=== PATIENT | male | born 1965 | race Caucasian/White ===

== ENCOUNTER 2020-05-13 16:01 | Emergency (ER) | payer OTHER, SELFPAY ==
[2020-05-13 16:06] VITALS: BP 195/93; PULSE 67; RESP 20; TEMP 36.3; O2SAT 98; BMI 50.8
--- NOTE | 2020-05-13 18:12 | ED.GENADULT ---
HPI - General Adult General Chief complaint: Upper Respiratory Symptoms Stated complaint: Hearing Loss In Right Ear Time Seen by Provider: 05/13/20 18:04 Source: patient Mode of arrival: Ambulatory Limitations: no limitations History of Present Illness HPI narrative: 54-year-old gentleman with a history of hypertension, sleep apnea with prior jaw advancement surgery, chronic bronchitis and seasonal allergies presents with ear discomfort and full sensation on the right side. He describes no specific hearing loss but it does feel a bit more muffled, pressured and mild tinnitus on the right side. No tenderness, no fevers, no drainage no recent injury or trauma to the ear. He has no throat pain, neck pain and no concerns with edema around the ear or the neck. He has tried Sudafed and Tylenol and found that did not relieve any of the symptoms. Related Data Home Medications Medication Instructions Recorded Confirmed lisinopril 10 mg tablet 20 mg PO QDAY #0 tab 03/06/20 03/06/20 montelukast 10 mg tablet 10 mg PO DAILY 03/06/20 03/06/20 Previous Rx's Medication Instructions Recorded nitroglycerin [Nitrostat] 0.4 mg SUBLINGUAL PRN PRN #100 tab 03/26/17 Allergies Allergy/AdvReac Type Severity Reaction Status Date / Time pollen extracts Allergy cough, Verified 03/06/20 11:21 congestion Review of Systems Review of Systems ROS Unobtainable: All systems reviewed & are unremarkable except as noted in HPI and below Patient History Medical History (Updated 05/14/20 @ 00:22 by Wendi Rios MD) Chronic bronchitis Hypertension Sleep apnea Surgical History (Updated 05/14/20 @ 00:22 by Wendi Rios MD) History of mandibular surgery Family History Father Sleep apnea Obesity Hypertension Heart disease Mother Sleep apnea Obesity Hypertension Family/Other Sleep apnea Insomnia Obesity Hypertension Heart disease Depression Social History Smoking Status: Never smoker Smoking Status: Never smoker alcohol intake frequency: 0-2 drinks per day Substance Use Type: does not use Exam Narrative Exam Narrative: General: Alert appropriate in no acute distress HEENT: Ear canals are normal bilaterally with no evidence of swelling infection or trauma. Both tympanic membranes are within normal limits. Right TMJ is tender with palpation through range of motion and completely reproduces his pain. Respiratory: Able to speak in full sentences, no obvious respiratory distress Skin: No obvious rashes, warm and dry Neurologic: Grossly intact no obvious asymmetries or abnormalities Psych, appropriate insight and affect, cooperative Initial Vital Signs Initial Vital Signs: Vital Signs Temperature 97.4 F L 05/13/20 16:06 Pulse Rate 67 05/13/20 16:06 Respiratory Rate 20 05/13/20 16:06 Blood Pressure 195/93 H 05/13/20 16:06 Pulse Oximetry 98 05/13/20 16:06 Course Vital Signs Vital signs: Vital Signs - 8 hr 05/13/20 16:06 Temperature 97.4 F L Pulse Rate 67 Respiratory Rate 20 Blood Pressure 195/93 H Pulse Oximetry 98 Medical Decision Making MDM Narrative Medical decision making narrative: 54-year-old gentleman presents with right ear pain and that is completely reproduced with palpation to the right TMJ through its full range of motion. Suspect that the your fullness is related to the pain in the right TMJ without evidence of your or joint infection or any specific trauma. No cervical adenopathy and no pharyngeal erythema or peritonsillar abscess. Will have him use ibuprofen and Tylenol over the next few days to see if symptoms improve spontaneously. He is safe for home discharge Discharge Plan Departure Patient Disposition: Home Clinical Impression: Temporomandibular joint pain Qualifiers: Laterality: right Qualified Code(s): M26.621 - Arthralgia of right temporomandibular joint Instructions: DI for Temporomandibular Disorder Activity Restrictions/Additional Instructions: Thank you for coming in today. Your exam is very reassuring. There is no infection, inflammation or abnormality in that your canal or along the tympanic membrane on the right side. With tenderness to the right TMJ as it moves through its range of motion, I suspect that this is the cause of the fullness that your noticing in the right ear. This likely will improve over the next few days. Frequently when a joint is inflamed it is worse with the 1st 1-2 days and then improved afterward. You can use 2 every 6 hours to aspirin and 1 Tylenol together help with the discomfort if needed. You may also find that ice to that TMJ area may help with the fullness sensation as well. For the next week or so I would advise that you not eat foods that require a lot of chewing and put extra stress on the jaw joint and do make sure that you are continuing to use your dental appliances while asleep to help avoid grinding as much as possible. I would encourage you to follow-up with your primary care physician in the near future. I hope you feel better Prescriptions: No Action nitroglycerin [Nitrostat] 0.4 MG tablet, sublingual 0.4 mg Sublingual PRN PRNQty: 100 RF: 0 lisinopril 10 mg tablet 20 mg PO QDAY Qty: 0 RF: 0 montelukast 10 mg tablet 10 mg PO DAILY RF: 0 Referrals: Kash Bowles MD [Primary Care Provider] -
== END 2020-05-13 18:52 | disposition home or self-care (01) ==
PROVIDERS: Emergency Provider Emergency Medicine; Family Provider Family Medicine; PCP Family Medicine
DX: M26.621 Arthralgia of right temporomandibular joint (principal); I10 Essential (primary) hypertension; G47.30 Sleep apnea, unspecified
CPT/HCPCS: 99281

== ENCOUNTER → 2020-08-16 08:41 | Outpatient (CLI) | payer OTHER, SELFPAY ==
[2020-08-16 09:39] LABS: COVID19 -Nasal RAPID Negative (Negative)
== END ==
PROVIDERS: Family Provider Family Medicine; PCP Family Medicine; Visit Provider Family Medicine Sleep Medicine
DX: Z20.822 Contact with and (suspected) exposure to COVID-19 (principal)
CPT/HCPCS: 87635; C9803

== ENCOUNTER → 2020-09-05 07:51 | Outpatient (CLI) | payer OTHER, SELFPAY ==
--- NOTE | 2020-09-05 | DI.ECHO.S_ITS ---
[facility] +---------+ [facility] +---------+ : : [address] : : : : [id number] : : : : Phone: [phone]+ Echocardiogram Report + + :Name: HOWARD TIJERINA Study Date: 09/05/2020 Height: 72 in : :[facility] ReadingLocation: Weight: 380 lb : : Gender: Male BSA: 2.8 m2 : :: 1965 Age: 55 yrs BP: 142/78 mmHg: :Reason For Study: Obstructive Hypertrophic cardiomyopathy : :Ordering Physician: MINH, : :WILI Performed By: Wendy Valerio : :Referring: WILI MOYA : + + Interpretation Summary PATIENT DEVELOPED PAIN IN LOWER BACK, NECK AND CHEST AFTER THE USE OF DEFINITY STATING 7/10 PAIN. AFTER 45 MIN OF OBSERVATION, PAIN IMPROVED. Patient states history of Etoh septal ablation. The left ventricle is mildly dilated. The left ventricular ejection fraction is grossly normal. There are no obvious focal wall motion abnormalities noted but poor endocardial definition reduces the sensitivity for the detection of such. Septal motion is consistent with bundle branch block. There is an echogenic mass noted along the interventricular septum or attached to papillary muscle or false tendon. The size is 3.0 x 2.2 cm and was present on prior echo study on 07/04/2016. There is no echo evidence for significant left ventricular outflow tract obstruction. The right ventricle is normal in size and function. The left atrium is severely dilated. Right atrial size is normal. The ascending aorta is mild-moderately enlarged. Procedure: A two-dimensional transthoracic echocardiogram with color flow and Doppler was performed. The study quality was technically difficult. Comparison is made with the echocardiogram of 03/05/2017. A contrast injection of Definity was performed to improve assessment of LV function. PATIENT DEVELOPED PAIN IN LOWER BACK, NECK AND CHEST AFTER THE USE OF DEFINITY. The heart rate ranged between 53-60 bpm during the study. Left Ventricle: The left ventricle is mildly dilated. Left ventricular wall thickness is mildly increased. There is no echo evidence for significant left ventricular outflow tract obstruction. There is an echogenic mass noted along the interventricular septum or attached to papillary muscle or false tendon. The size is 3.0 x 2.2 cm and was present on prior echo study on 07/04/2016. The left ventricular ejection fraction is grossly normal. There are no obvious focal wall motion abnormalities noted but poor endocardial definition reduces the sensitivity for the detection of such. Right Ventricle: The right ventricle is normal in size and function. Atria: The left atrium is severely dilated. Right atrial size is normal. There is no Doppler evidence for an interatrial shunt. Mitral Valve: The mitral valve leaflets appear mildly thickened, but open well. Aortic Valve: The peak aortic velocity is 2.1 m/sec. The aortic valve mean gradient is 9 mmHg. No aortic regurgitation is present. Tricuspid Valve: The tricuspid valve is not well visualized, but is grossly normal. No tricuspid regurgitation. Pulmonary artery pressures cannot be estimated because of the lack of a measurable TR jet velocity. Great Vessels: The ascending aorta is mild-moderately enlarged. The inferior vena cava was not visualized. Pericardium/ Pleura There is no pericardial effusion. There is no pleural effusion. MMode/2D Measurements & Calculations LVIDd: 6.1 cm LVOT diam: 3.2 cm LVIDs: 3.8 cm asc Aorta Diam: 4.1 cm FS: 37.9 % Ao Arch Diam (Prox Trans): 4.4 cm EPSS: 1.1 cm IVSd: 1.2 cm LVPWd: 1.1 cm LV sheets. diameter/BSA (cm/m^2): 2.2 LV sys. diameter/BSA (cm/m^2): 1.4 LA A2 area: 43.8 cm2 RA long axis: 5.6 cm LA A4 area: 37.7 cm2 RA area: 18.7 cm2 LA length (vol): 7.0 cm RA vol: 52.9 ml LA vol: 200.8 ml RA : 18.9 ml/m2 LA vol index: 71.8 ml/m2 RVD1 (basal): 2.9 cm TAPSE: 2.8 cm Doppler Measurements & Calculations Ao V2 max: 207.7 cm/sec LVOT Max Juvenal: 78.1 cm/sec Ao V2 mean: 136.7 cm/sec LV V1 max P.4 mmHg Ao max P.3 mmHg LV V1 VTI: 16.8 cm Ao mean P.8 mmHg TERRI(I,D): 3.3 cm2 Ao V2 VTI: 39.7 cm TERRI(V,D): 2.9 cm2 sev ratio: 0.42 TERRI indexed to BSA (cm^2/m^2): 1.2 MV E max juvenal: 90.9 cm/sec PA V2 max: 107.8 cm/sec MV A max juvenal: 83.6 cm/sec PA V2 mean: 80.7 cm/sec MV E/A: 1.1 PA mean P.8 mmHg Med Peak E' Juvenal: 5.9 cm/sec PA pr(Accel): 31.0 mmHg E/E' med: 15.4 Lat Peak E' Juvenal: 8.6 cm/sec E/E' lat: 10.6 E/e' average: 13.0 MV dec time: 0.36 sec SV(LVOT): 131.5 ml Reading Physician:10:14 AM
== END ==
PROVIDERS: Family Provider Family Medicine; PCP Family Medicine; Referring Provider Internal Medicine Cardiovascular Disease; Visit Provider Internal Medicine Cardiovascular Disease
DX: I42.1 Obstructive hypertrophic cardiomyopathy (principal); R07.9 Chest pain, unspecified; I77.89 Other specified disorders of arteries and arterioles
CPT/HCPCS: 93306

== ENCOUNTER → 2021-01-14 13:14 | Outpatient (CLI) | payer OTHER, SELFPAY ==
[2021-01-14 16:46] LABS: COVID19 -Nasal RAPID Negative (Negative)
== END ==
PROVIDERS: Family Provider Family Medicine; PCP Family Medicine; Referring Provider Nurse Practitioner Family; Visit Provider Nurse Practitioner Family
DX: Z20.822 Contact with and (suspected) exposure to COVID-19 (principal); Z01.812 Encounter for preprocedural laboratory examination
CPT/HCPCS: 87635

== ENCOUNTER → 2021-04-17 11:31 | Outpatient (CLI) | payer OTHER, SELFPAY ==
[2021-04-17 12:42] LABS: BUN Creatinine Ratio 19.8 (6-22); Blood Urea Nitrogen 17 mg/dL (9-20); Calcium 9.9 mg/dL (8.4-10.2); Carbon Dioxide 28 mmol/L (22-32); Chloride 106 mmol/L (98-107); Estimated Glomerular Filt Rate > 60.0 mL/min (>60); Glucose 120 mg/dL (70-100); HEMOLYSIS < 15 (0-50); Magnesium 2.3 mg/dL (1.6-2.3); Potassium 4.5 mmol/L (3.4-5.1); Sodium 140 mmol/L (137-145)
[2021-04-17 12:51] LABS: NT-proBNP (BNP-Adult 18+) 267 pg/mL (<125)
== END ==
PROVIDERS: Family Provider Family Medicine; PCP Family Medicine; Referring Provider Nurse Practitioner Family; Visit Provider Nurse Practitioner Family
DX: Z79.899 Other long term (current) drug therapy (principal); I42.2 Other hypertrophic cardiomyopathy
CPT/HCPCS: 36415; 80048; 83735; 83880

== ENCOUNTER → 2021-05-08 11:13 | Outpatient (CLI) | payer OTHER, SELFPAY ==
[2021-05-08 13:52] LABS: Blood Urea Nitrogen 18 mg/dL (9-20); Calcium 9.5 mg/dL (8.4-10.2); Carbon Dioxide 27 mmol/L (22-32); Chloride 104 mmol/L (98-107); Estimated Glomerular Filt Rate > 60.0 mL/min (>60); Glucose 113 mg/dL (70-100); HEMOLYSIS < 15 (0-50); Potassium 4.4 mmol/L (3.4-5.1); Sodium 138 mmol/L (137-145)
[2021-05-08 13:58] LABS: NT-proBNP (BNP-Adult 18+) 178 pg/mL (<125)
== END ==
PROVIDERS: Family Provider Family Medicine; PCP Family Medicine; Referring Provider Nurse Practitioner Family; Visit Provider Nurse Practitioner Family
DX: Z79.899 Other long term (current) drug therapy (principal); I51.89 Other ill-defined heart diseases
CPT/HCPCS: 36415; 80048; 83880

== ENCOUNTER 2021-06-02 04:17 | Emergency (ER) | payer OTHER, SELFPAY ==
[2021-06-02] VITALS (19 sets, daily range): BP systolic 135–180; BP diastolic 76–92; PULSE 54–56; RESP 10–20; TEMP 36.8; O2SAT 94–97; BMI 53.5
--- NOTE | 2021-06-02 04:32 | DI.RAD.S_ITS ---
PROCEDURE: XR CHEST 1V INDICATIONS: chest pain TECHNIQUE: One view of the chest was acquired. COMPARISON: None. FINDINGS: Surgical changes and devices: Dual-chamber left-sided pacemaker and defibrillator present. Lungs and pleura: Lungs are clear. No pleural effusions or pneumothorax. Low lung volumes accentuate pulmonary interstitium and heart size. Mediastinum: Mediastinal contours appear normal. Heart size is normal. Bones and chest wall: No suspicious bony lesions. Overlying soft tissues appear unremarkable. IMPRESSION: No acute cardiopulmonary findings Approved by: Bishop Loving M.D. on 06/02/2021 at 7:04
--- NOTE | 2021-06-02 04:35 | ED_ITS ---
HPI - General Adult <Michael Pardo DO - Last Filed: 06/02/21 18:06> General Chief complaint: Chest Pain Stated complaint: chest pain x30 min Time Seen by Provider: 06/02/21 04:22 Source: patient and family Mode of arrival: Family Vehicle Limitations: no limitations History of Present Illness HPI narrative: Patient is a 55-year-old male. Has a history of hypertrophic cardiomyopathy. Does see a library science instructor at the [facility]. Approximately 1 year ago had a pacemaker/defibrillator placed. He states that he has cardiomyopathy because the small vessels in his heart cannot provide it with blood supply. Has very regular chest discomfort. Has long-acting nitrates at home. Has taken all of his medication as directed. He states that approximately 30 minutes prior to arrival the emergency department he started have left-sided chest pain. He has had chest pain like this in the past but this is different than his normal chest discomfort. He states that normally nitroglycerin helps with the discomfort. He took 3 nitroglycerin prior to arrival without any improvement. He also had minimal improvement of his blood pressure. Because the nitroglycerin did not improve his symptoms he came to the emergency department for evaluation. Related Data Home Medications Medication Instructions Recorded Confirmed lisinopril 40 mg tablet 40 mg PO DAILY 07/24/20 06/02/21 albuterol sulfate 90 mcg/actuation 2 puff INHALATION Q4-6H PRN 12/19/20 12/19/20 aerosol inhaler metoprolol tartrate 25 mg tablet 50 mg PO BID tab 12/19/20 06/02/21 Adult Low Dose Aspirin 1 tab DAILY 06/02/21 06/02/21 amlodipine 5 mg tablet mg DAILY 06/02/21 furosemide 40 mg tablet 40 mg DAILY 06/02/21 06/02/21 isosorbide mononitrate 30 mg 30 mg PO DAILY 06/02/21 06/02/21 tablet,extended release 24 hr nitroglycerin 0.4 mg sublingual 0.4 mg SUBLINGUAL PRN PRN 06/02/21 06/02/21 tablet (Nitrostat) potassium chloride 10 mEq 10 meq PO DAILY 06/02/21 06/02/21 tablet,extended release Previous Rx's Medication Instructions Recorded isosorbide mononitrate 60 mg 60 mg PO QAM #30 tab 06/02/21 tablet,extended release 24 hr Allergies Allergy/AdvReac Type Severity Reaction Status Date / Time Iodinated Contrast Media Allergy Verified 06/02/21 04:43 pollen extracts Allergy cough, Verified 12/19/20 14:10 congestion Review of Systems <Michael Pardo DO - Last Filed: 06/02/21 18:06> Constitutional Constitutional: Reports system reviewed and no additional complaints, except as documented Cardiovascular Cardiovascular: Reports as per HPI and Reports system reviewed and no additional complaints, except as documented Respiratory Respiratory: Reports as per HPI and Reports system reviewed and no additional complaints, except as documented Gastrointestinal Gastrointestinal: Reports system reviewed and no additional complaints, except as documented Integumentary/Breasts Skin/Breast: Reports system reviewed and no additional complaints, except as documented Hematologic/Lymphatic On Anticoagulants: No Patient History <Michael Pardo DO - Last Filed: 06/02/21 18:06> Medical History Allergic rhinitis Asthma Benign essential HTN Chest pain, atypical Cholelithiasis Chronic bronchitis HOCM (hypertrophic obstructive cardiomyopathy) Morbid obesity with body mass index (BMI) of 50.0 to 59.9 in adult (Unknown) Obstructive sleep apnea, adult (~1999) Surgical History (Updated 08/10/20 @ 17:09 by JASON Sullivan) History of cholecystectomy (~2016) History of mandibular surgery (~2002) Family History (Updated 07/25/20 @ 00:13 by JASON Sullivan) Father Sleep apnea Obesity Hypertension Heart disease HOCM (hypertrophic obstructive cardiomyopathy) Mother Sleep apnea Obesity Hypertension Family/Other Sleep apnea Insomnia Obesity Hypertension Heart disease Depression Social History marital status: (to Valentina Santana) details: lives in [place] number of children: 3 household members: spouse lives independently: Yes caregiver/support person: No housing: house education level: master's degree 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[employer]) Smoking Status: Never smoker during the past year weight has: increased > 10 lbs Type(s) of exercise: other (stationary bicycle) frequency: 3-4 times per week duration: 15-30 minutes/day Smoking Status: Never smoker alcohol intake frequency: 0-2 drinks per day Substance Use Type: does not use Exam <DO Suraj Isaacs Last Filed: 06/02/21 18:06> Initial Vital Signs Initial Vital Signs: Vital Signs Temperature 98.2 F 06/02/21 04:28 Pulse Rate 54 L 06/02/21 04:28 Respiratory Rate 18 06/02/21 04:28 Blood Pressure 146/79 H 06/02/21 04:28 Pulse Oximetry 97 06/02/21 04:28 Const General: cooperative and No acute distress HENMT Head: normal to inspection and normocephalic Resp Effort & Inspection: normal respiratory effort Auscultation: clear to auscultation bilaterally Cardio Rate: regular rate Rhythm: regular rhythm GI Inspection: normal to inspection Palpation: soft and No tender Skin General: no rashes or lesions noted Neuro General: patient alert, patient awake, patient oriented x3 and moves all extremities Extrem General: edema (This is not new) Psych Appearance: grossly normal <Josselyn Escobar DO - Last Filed: 06/02/21 12:17> Initial Vital Signs Initial Vital Signs: Vital Signs Temperature 98.2 F 06/02/21 04:28 Pulse Rate 54 L 06/02/21 04:28 Respiratory Rate 18 06/02/21 04:28 Blood Pressure 146/79 H 06/02/21 04:28 Pulse Oximetry 97 06/02/21 04:28 Course <DO Suraj Isaacs Last Filed: 06/02/21 18:06> Orders Ordered: Discontinued Medications Amlodipine Besylate (Amlodipine 5 Mg Tablet) 5 mg PO NOW ONE Stop: 06/02/21 06:34 Last Admin: 06/02/21 07:19 Dose: 5 mg Documented by: SIMA Aspirin (Aspirin Ec 81 Mg Tablet) 81 mg PO NOW ONE Stop: 06/02/21 06:34 Last Admin: 06/02/21 07:22 Dose: 81 mg Documented by: SIMA Furosemide (Furosemide 40 Mg Tablet) 40 mg PO NOW ONE Stop: 06/02/21 06:34 Last Admin: 06/02/21 07:22 Dose: 40 mg Documented by: SIMA Isosorbide Mononitrate (Isosorbide Mononitrate Er 30 Mg Tablet) 30 mg PO NOW ONE Stop: 06/02/21 05:53 Last Admin: 06/02/21 06:03 Dose: 30 mg Documented by: SARAH Metoprolol Succinate (Metoprolol Er 50 Mg Tablet) 50 mg PO NOW ONE Stop: 06/02/21 06:34 Last Admin: 06/02/21 07:20 Dose: 50 mg Documented by: SIMA Morphine Sulfate (Morphine 4 Mg/Ml Inj) 4 mg IV NOW ONE Stop: 06/02/21 05:53 Last Admin: 06/02/21 05:57 Dose: 4 mg Documented by: SARAH Nitroglycerin (Nitroglycerin Oint 1 Inch/Gm Oint...G.) 0.5 inch TOP NOW ONE Stop: 06/02/21 04:43 Last Admin: 06/02/21 05:11 Dose: 0.5 inch Documented by: SARAH Potassium Chloride (Potassium Chloride 10 Meq Tab) 10 meq PO NOW ONE Stop: 06/02/21 06:34 Last Admin: 06/02/21 07:20 Dose: 10 meq Documented by: SIMA Vital Signs Vital signs: Vital Signs - 8 hr 06/02/21 04:28 06/02/21 05:18 06/02/21 05:30 Temperature 98.2 F Pulse Rate 54 L 54 L 54 L Respiratory Rate 18 10 L 14 Blood Pressure 146/79 H Pulse Oximetry 97 95 94 06/02/21 05:36 06/02/21 06:00 06/02/21 06:02 Temperature Pulse Rate 54 L 56 L 54 L Respiratory Rate 12 18 14 Blood Pressure 157/89 H 160/89 H Pulse Oximetry 96 97 97 06/02/21 06:30 06/02/21 07:00 06/02/21 07:20 Temperature Pulse Rate 54 L 54 L 54 L Respiratory Rate Blood Pressure 135/76 Pulse Oximetry 97 94 06/02/21 07:21 06/02/21 07:30 06/02/21 07:58 Temperature Pulse Rate 54 L 54 L 54 L Respiratory Rate 20 Blood Pressure 135/76 180/92 H 163/89 H Pulse Oximetry 95 97 06/02/21 07:59 06/02/21 08:00 06/02/21 08:30 Temperature Pulse Rate 54 L 55 L 54 L Respiratory Rate Blood Pressure 163/89 H Pulse Oximetry 96 96 96 06/02/21 09:00 06/02/21 09:30 06/02/21 09:31 Temperature Pulse Rate 54 L 54 L 54 L Respiratory Rate Blood Pressure 138/79 Pulse Oximetry 94 95 95 06/02/21 10:00 Temperature Pulse Rate 54 L Respiratory Rate 20 Blood Pressure 144/78 H Pulse Oximetry 94 <Josselyn Escobar DO - Last Filed: 06/02/21 12:17> Orders Ordered: Discontinued Medications Amlodipine Besylate (Amlodipine 5 Mg Tablet) 5 mg PO NOW ONE Stop: 06/02/21 06:34 Last Admin: 06/02/21 07:19 Dose: 5 mg Documented by: SIMA Aspirin (Aspirin Ec 81 Mg Tablet) 81 mg PO NOW ONE Stop: 06/02/21 06:34 Last Admin: 06/02/21 07:22 Dose: 81 mg Documented by: SIMA Furosemide (Furosemide 40 Mg Tablet) 40 mg PO NOW ONE Stop: 06/02/21 06:34 Last Admin: 06/02/21 07:22 Dose: 40 mg Documented by: SIMA Isosorbide Mononitrate (Isosorbide Mononitrate Er 30 Mg Tablet) 30 mg PO NOW ONE Stop: 06/02/21 05:53 Last Admin: 06/02/21 06:03 Dose: 30 mg Documented by: SARAH Metoprolol Succinate (Metoprolol Er 50 Mg Tablet) 50 mg PO NOW ONE Stop: 06/02/21 06:34 Last Admin: 06/02/21 07:20 Dose: 50 mg Documented by: SIMA Morphine Sulfate (Morphine 4 Mg/Ml Inj) 4 mg IV NOW ONE Stop: 06/02/21 05:53 Last Admin: 06/02/21 05:57 Dose: 4 mg Documented by: SARAH Nitroglycerin (Nitroglycerin Oint 1 Inch/Gm Oint...G.) 0.5 inch TOP NOW ONE Stop: 06/02/21 04:43 Last Admin: 06/02/21 05:11 Dose: 0.5 inch Documented by: SARAH Potassium Chloride (Potassium Chloride 10 Meq Tab) 10 meq PO NOW ONE Stop: 06/02/21 06:34 Last Admin: 06/02/21 07:20 Dose: 10 meq Documented by: SIMA Vital Signs Vital signs: Vital Signs - 8 hr 06/02/21 04:28 06/02/21 05:18 06/02/21 05:30 Temperature 98.2 F Pulse Rate 54 L 54 L 54 L Respiratory Rate 18 10 L 14 Blood Pressure 146/79 H Pulse Oximetry 97 95 94 06/02/21 05:36 06/02/21 06:00 06/02/21 06:02 Temperature Pulse Rate 54 L 56 L 54 L Respiratory Rate 12 18 14 Blood Pressure 157/89 H 160/89 H Pulse Oximetry 96 97 97 06/02/21 06:30 06/02/21 07:00 06/02/21 07:20 Temperature Pulse Rate 54 L 54 L 54 L Respiratory Rate Blood Pressure 135/76 Pulse Oximetry 97 94 06/02/21 07:21 06/02/21 07:30 06/02/21 07:58 Temperature Pulse Rate 54 L 54 L 54 L Respiratory Rate 20 Blood Pressure 135/76 180/92 H 163/89 H Pulse Oximetry 95 97 06/02/21 07:59 06/02/21 08:00 06/02/21 08:30 Temperature Pulse Rate 54 L 55 L 54 L Respiratory Rate Blood Pressure 163/89 H Pulse Oximetry 96 96 96 06/02/21 09:00 06/02/21 09:30 06/02/21 09:31 Temperature Pulse Rate 54 L 54 L 54 L Respiratory Rate Blood Pressure 138/79 Pulse Oximetry 94 95 95 06/02/21 10:00 Temperature Pulse Rate 54 L Respiratory Rate 20 Blood Pressure 144/78 H Pulse Oximetry 94 Medical Decision Making <Michael Pardo DO - Last Filed: 06/02/21 18:06> Lab Data Lab results reviewed: Yes I reviewed the patient's lab results. Result diagrams: 06/02/21 05:00 06/02/21 05:00 Labs: Lab Results 06/02/21 06/02/21 06/02/21 Range/Units 05:00 05:00 07:50 WBC 6.0 (4.5-11.0) X10^3/uL RBC 5.09 (4.5-5.9) X10^6/uL Hgb 15.6 (13.5-17.5) g/dL Hct 45.7 (41-53) % MCV 89.8 (80-100) fL MCH 30.7 (26-34) PG MCHC 34.2 (30-36) % RDW 13.2 (11.6-14.8) % Plt Count 245 (150-400) X10^3/uL Neut % (Auto) 57.2 (50-75) % Lymph % (Auto) 28.2 (25-40) % [place] % (Auto) 10.9 (3-14) % Eos % (Auto) 2.6 (2-4) % Baso % (Auto) 1.1 (0-2) % Neut # (Auto) 3400 (3837-9553) /uL Lymph # (Auto) 1700 (8562-6551) /uL [place] # (Auto) 700 (0-900) /uL Eos # (Auto) 200 (0-450) /uL Baso # (Auto) 100 (0-100) /uL Sodium 138 (137-145) mmol/L Potassium 3.7 (3.4-5.1) mmol/L Chloride 105 (98-107) mmol/L Carbon Dioxide 28 (22-32) mmol/L BUN 14 (9-20) mg/dL Creatinine 0.86 (0.66-1.25) mg/dL Estimated GFR > 60.0 (>60) mL/min BUN/Creatinine Ratio 16.3 (6-22) Glucose 128 H (70-100) mg/dL Calcium 9.5 (8.4-10.2) mg/dL Total Bilirubin 0.6 (0.2-1.3) mg/dL AST 43 (17-59) IU/L ALT 58 H (<50) IU/L Alkaline Phosphatase 72 (38-126) U/L Total Creatine Kinase 110 95 (55-170) U/L CK-MB (CK-2) 2.42 H TNP (<2.37) ng/mL CK-MB (CK-2) Rel Index 2.2 TNP (1.5-5.0) % Troponin I 0.018 0.023 (0.01-0.034) ng/mL NT-Pro-B Natriuret Pep 203 H (<125) pg/mL Total Protein 8.0 (6.3-8.2) g/dL Albumin 4.2 (3.5-5.0) g/dL Globulin 3.8 (1.7-4.1) g/dL Albumin/Globulin Ratio 1.1 (1.0-2.8) Lipase 45 (23-300) U/L Imaging Data Chest x-ray: Radiologist's Impression: No active cardiopulmonary disease demonstrated ECG Data Attestation: I personally reviewed and interpreted this ECG as follows: Interpretation: AV dual paced Rate of 55 MDM Narrative Medical decision making narrative: Patient has an extensive cardiac history to include hypertrophic cardiomyopathy and what sounds like ischemic cardiomyopathy. He has a pacemaker/defibrillator in place. Has chest discomfort on a regular basis however had worsening and slightly different discomfort earlier today. Nitropaste here in the emergency department helped his pain somewhat however morphine tremendously helped his pain and he states that it is now back at baseline. Initial troponin negative. Patient asked that we give his morning medications to him. He states that his metoprolol as the extended release and he takes Lasix/potassium every other day and today would be the day that he takes these medications. Plan is to repeat troponin. Care turned over to Dr. Escobar at change of shift to follow up on troponin and disposition. <Josselyn Escobar, DO - Last Filed: 06/02/21 12:17> Lab Data Labs: Lab Results 06/02/21 06/02/21 06/02/21 Range/Units 05:00 05:00 07:50 WBC 6.0 (4.5-11.0) X10^3/uL RBC 5.09 (4.5-5.9) X10^6/uL Hgb 15.6 (13.5-17.5) g/dL Hct 45.7 (41-53) % MCV 89.8 (80-100) fL MCH 30.7 (26-34) PG MCHC 34.2 (30-36) % RDW 13.2 (11.6-14.8) % Plt Count 245 (150-400) X10^3/uL Neut % (Auto) 57.2 (50-75) % Lymph % (Auto) 28.2 (25-40) % [place] % (Auto) 10.9 (3-14) % Eos % (Auto) 2.6 (2-4) % Baso % (Auto) 1.1 (0-2) % Neut # (Auto) 3400 (5320-4369) /uL Lymph # (Auto) 1700 (4614-8625) /uL [place] # (Auto) 700 (0-900) /uL Eos # (Auto) 200 (0-450) /uL Baso # (Auto) 100 (0-100) /uL Sodium 138 (137-145) mmol/L Potassium 3.7 (3.4-5.1) mmol/L Chloride 105 (98-107) mmol/L Carbon Dioxide 28 (22-32) mmol/L BUN 14 (9-20) mg/dL Creatinine 0.86 (0.66-1.25) mg/dL Estimated GFR > 60.0 (>60) mL/min BUN/Creatinine Ratio 16.3 (6-22) Glucose 128 H (70-100) mg/dL Calcium 9.5 (8.4-10.2) mg/dL Total Bilirubin 0.6 (0.2-1.3) mg/dL AST 43 (17-59) IU/L ALT 58 H (<50) IU/L Alkaline Phosphatase 72 (38-126) U/L Total Creatine Kinase 110 95 (55-170) U/L CK-MB (CK-2) 2.42 H TNP (<2.37) ng/mL CK-MB (CK-2) Rel Index 2.2 TNP (1.5-5.0) % Troponin I 0.018 0.023 (0.01-0.034) ng/mL NT-Pro-B Natriuret Pep 203 H (<125) pg/mL Total Protein 8.0 (6.3-8.2) g/dL Albumin 4.2 (3.5-5.0) g/dL Globulin 3.8 (1.7-4.1) g/dL Albumin/Globulin Ratio 1.1 (1.0-2.8) Lipase 45 (23-300) U/L ECG Data Interpretation: AV dual paced Rate of 55 EKG 2. Paced rhythm rate 55 AR interval [address] changes similar to previous EKG MDM Narrative Medical decision making narrative: Patient has an extensive cardiac history to include hypertrophic cardiomyopathy and what sounds like ischemic cardiomyopathy. He has a pacemaker/defibrillator in place. Has chest discomfort on a regular basis however had worsening and slightly different discomfort earlier today. Nitropaste here in the emergency department helped his pain somewhat however morphine tremendously helped his pain and he states that it is now back at baseline. Initial troponin negative. Patient asked that we give his morning medications to him. He states that his metoprolol as the extended release and he takes Lasix/potassium every other day and today would be the day that he takes these medications. Plan is to repeat troponin. Care turned over to Dr. Escobar at change of shift to follow up on troponin and disposition. Received sign-out from Dr. Pardo is seen evaluated patient myself. He has a history of HCOM he has constant angina. Last night it was quite atypical will come for sleepy to 3 nitroglycerines which is not normal for him and did not help came to the emergency department. He was given nitro paste and morphine which is calmed his pain. He has no EKG changes 2nd troponin is also negative. However started having pain increase again however he says is back to his normal pain. She is followed by [facility] Dr. Thompson 930-Dr. De cardiology at , recommends talking patient's own library science instructor Dr. Garcia to also happens to be on-call today 120am-Dr. Thompson updated patient's symptoms test results states that he had a recent heart catheterization in March which was normal. At this time he says there is microvascular disease which happen in hypertrophic cardiomyopathy recommends increasing isosorbide to 60 mg daily and he will follow-up in clinic. Discharge Plan Departure Patient Disposition: Home Clinical Impression: Angina at rest Instructions: DI for Angina Activity Restrictions/Additional Instructions: *You have been diagnosed with angina *What to do: At this time Dr. Thompson recommends increasing isosorbide and follow you up in clinic. *Continue to take medications as directed Isosorbide 60 mg once daily--> [facility] *Follow up with your primary care provider in 2-3 days or call [phone] Call Cardiology tomorrow to schedule follow-up appointment *Return to ER if you should have increasing, chest pain shortness of breath, palpitations or any new, worsening or concerning symptoms Prescriptions: New isosorbide mononitrate 60 mg tablet extended release 24 hr 60 mg PO QAM Qty: 30 0RF No Action Adult Low Dose Aspirin 81 mg 1 tab DAILY 0RF furosemide 40 mg tablet 40 mg DAILY 0RF Label Comments: take 1 tablet by mouth once daily isosorbide mononitrate 30 mg tablet extended release 24 hr 30 mg PO DAILY 0RF potassium chloride 10 mEq tablet extended release 10 meq PO DAILY 0RF Label Comments: take 1 tablet by mouth once daily amlodipine 5 mg tablet DAILY 0RF nitroglycerin [Nitrostat] 0.4 MG tablet, sublingual 0.4 mg Sublingual PRN PRN (Reason: Chest Pain) 0RF metoprolol tartrate 25 mg tablet 50 mg PO BID 0RF albuterol sulfate 90 mcg/actuation HFA aerosol inhaler 2 puff inhalation Q4-6H PRN0RF lisinopril 40 mg tablet 40 mg PO DAILY 0RF Referrals: Kash Bowles MD [Primary Care Provider] -
[2021-06-02] MEDS: NITROGLYCERIN OINT 1 INCH/GM OINT...G. 0.5 INCH TOP (05:11)
[2021-06-02 05:26] LABS: Alanine Aminotransferase 58 IU/L (<50); Albumin 4.2 g/dL (3.5-5.0); Albumin Globulin Ratio 1.1 (1.0-2.8); Alkaline Phosphatase 72 U/L (38-126); Aspartate Aminotransferase 43 IU/L (17-59); BUN Creatinine Ratio 16.3 (6-22); Bilirubin Total 0.6 mg/dL (0.2-1.3); Blood Urea Nitrogen 14 mg/dL (9-20); Calcium 9.5 mg/dL (8.4-10.2); Carbon Dioxide 28 mmol/L (22-32); Creatine Kinase 110 U/L (55-170); Estimated Glomerular Filt Rate > 60.0 mL/min (>60); Globulin 3.8 g/dL (1.7-4.1); Glucose 128 mg/dL (70-100); HEMOLYSIS < 15 (0-50); Lipase 45 U/L (23-300)
[2021-06-02 05:31] LABS: Add Manual Diff / Slide Review NO; Basophils Absolute Auto 100 /uL (0-100); Basophils Percent Auto 1.1 % (0-2); Eosinophils Absolute Auto 200 /uL (0-450); Eosinophils Percent Auto 2.6 % (2-4); Hematocrit 45.7 % (41-53); Hemoglobin 15.6 g/dL (13.5-17.5); Lymphocytes Absolute Auto 1700 /uL (1100-4500); Lymphocytes Percent Auto 28.2 % (25-40); Mean Corpuscular HGB Conc 34.2 % (30-36); Mean Corpuscular Hemoglobin 30.7 PG (26-34); Mean Corpuscular Volume 89.8 fL (80-100); Monocytes Absolute Auto 700 /uL (0-900); Monocytes Percent Auto 10.9 % (3-14); Neutrophils Absolute Auto 3400 /uL (1500-7000); Neutrophils Percent Auto 57.2 % (50-75); Platelet Count 245 X10^3/uL (150-400); Red Blood Cell Count 5.09 X10^6/uL (4.5-5.9); Red Cell Distribution Width 13.2 % (11.6-14.8)
[2021-06-02 05:32] LABS: Chloride 105 mmol/L (98-107); Potassium 3.7 mmol/L (3.4-5.1); Sodium 138 mmol/L (137-145)
[2021-06-02 05:38] LABS: NT-proBNP (BNP-Adult 18+) 203 pg/mL (<125); Troponin I 0.018 ng/mL (0.01-0.034)
--- NOTE | 2021-06-02 05:42 | PC.NURSE ---
resting with eyes closed resp even and unlabored
[2021-06-02 05:57] LABS: CKMB % Relative Index 2.2 % (1.5-5.0); Creatine Kinase MB 2.42 ng/mL (<2.37)
[2021-06-02] MEDS: MORPHINE 4 MG/ML INJ IV (05:57)
[2021-06-02] MEDS: ISOSORBIDE MONONITRATE ER 30 MG TABLET PO (06:03)
[2021-06-02] MEDS: AMLODIPINE 5 MG TABLET PO (07:19)
[2021-06-02] MEDS: METOPROLOL ER 50 MG TABLET PO (07:20)
[2021-06-02] MEDS: POTASSIUM CHLORIDE 10 MEQ TAB PO (07:20)
[2021-06-02] MEDS: FUROSEMIDE 40 MG TABLET PO (07:22)
[2021-06-02] MEDS: ASPIRIN EC 81 MG TABLET PO (07:22)
[2021-06-02 08:19] LABS: Creatine Kinase 95 U/L (55-170)
[2021-06-02 08:32] LABS: Troponin I 0.023 ng/mL (0.01-0.034)
== END 2021-06-02 10:26 | disposition home or self-care (01) ==
PROVIDERS: Emergency Medicine; Emergency Provider Emergency Medicine; Family Provider Family Medicine; PCP Family Medicine
DX: I20.9 Angina pectoris, unspecified (principal); Z95.0 Presence of cardiac pacemaker
CPT/HCPCS: 36415; 71045; 80053; 82550; 82553; 83690; 83880; 84484; 85025; 93005; 93010; 96374; 99284; 99285; J2270

== ENCOUNTER → 2021-08-01 15:37 | Outpatient (CLI) | payer BC, SELFPAY ==
[2021-08-01 18:56] LABS: BUN Creatinine Ratio 21.3 (6-22); Blood Urea Nitrogen 19 mg/dL (9-20); Calcium 8.6 mg/dL (8.4-10.2); Carbon Dioxide 28 mmol/L (22-32); Chloride 103 mmol/L (98-107); Estimated Glomerular Filt Rate > 60 mL/min (>60); Glucose 143 mg/dL (70-100); HEMOLYSIS < 15 (0-50); Magnesium 2.3 mg/dL (1.6-2.3); Potassium 4.4 mmol/L (3.4-5.1); Sodium 140 mmol/L (137-145)
[2021-08-01 19:08] LABS: NT-proBNP (BNP-Adult 18+) 147 pg/mL (<125)
== END ==
PROVIDERS: Family Provider Family Medicine; PCP Family Medicine; Referring Provider Nurse Practitioner Family; Visit Provider Nurse Practitioner Family
DX: I50.32 Chronic diastolic (congestive) heart failure (principal); Z79.899 Other long term (current) drug therapy; I42.2 Other hypertrophic cardiomyopathy
CPT/HCPCS: 36415; 80048; 83735; 83880

== ENCOUNTER → 2022-07-03 07:45 | Outpatient (CLI) | payer BC, SELFPAY ==
[2022-07-03 08:53] LABS: Hemoglobin A1C% w Est Avg Glu 5.4 % (4.0-6.0)
[2022-07-03 09:20] LABS: BUN Creatinine Ratio 16.7 (6-22); Blood Urea Nitrogen 16 mg/dL (9-20); Calcium 9.3 mg/dL (8.4-10.2); Carbon Dioxide 23 mmol/L (22-32); Chloride 105 mmol/L (98-107); Estimated Glomerular Filt Rate > 60 mL/min (>60); Glucose 104 mg/dL (70-100); HEMOLYSIS < 15 (0-50); Potassium 4.5 mmol/L (3.4-5.1); Sodium 137 mmol/L (137-145)
[2022-07-03 09:24] LABS: NT-proBNP (BNP-Adult 18+) 124 pg/mL (<125)
== END ==
PROVIDERS: Family Provider Family Medicine; PCP Family Medicine; Referring Provider Internal Medicine Cardiovascular Disease; Visit Provider Internal Medicine Cardiovascular Disease
DX: I42.2 Other hypertrophic cardiomyopathy (principal)
CPT/HCPCS: 36415; 80048; 83036; 83880

== ENCOUNTER → 2023-01-01 07:22 | Outpatient (CLI) | payer BC, SELFPAY ==
[2023-01-01 09:45] LABS: BUN Creatinine Ratio 22.3 (6-22); Blood Urea Nitrogen 21 mg/dL (9-20); Calcium 9.4 mg/dL (8.4-10.2); Carbon Dioxide 24 mmol/L (22-32); Chloride 104 mmol/L (98-107); Cholesterol 216 mg/dL (140-199); Estimated Glomerular Filt Rate > 60 mL/min (>60); Glucose 97 mg/dL (70-100); HDL Cholesterol 49 mg/dL (40-60); HEMOLYSIS < 15 (0-50); LDL Cholesterol Calculated 137 mg/dL (<100); Potassium 4.6 mmol/L (3.4-5.1); Sodium 138 mmol/L (137-145); Triglycerides 152 mg/dL (35-150)
[2023-01-01 09:50] LABS: NT-proBNP (BNP-Adult 18+) 110 pg/mL (<125)
== END ==
PROVIDERS: Family Provider Family Medicine; PCP Family Medicine; Referring Provider Nurse Practitioner Family; Visit Provider Nurse Practitioner Family
DX: I42.2 Other hypertrophic cardiomyopathy (principal)
CPT/HCPCS: 36415; 80048; 80061; 83880

== ENCOUNTER → 2023-03-25 07:26 | Outpatient (CLI) | payer BC, SELFPAY ==
[2023-03-25 09:09] LABS: BUN Creatinine Ratio 26.7 (6-22); Blood Urea Nitrogen 24 mg/dL (9-20); Calcium 9.8 mg/dL (8.4-10.2); Carbon Dioxide 26 mmol/L (22-32); Chloride 102 mmol/L (98-107); Estimated Glomerular Filt Rate > 60 mL/min (>60); Glucose 98 mg/dL (70-100); HEMOLYSIS < 15 (0-50); Potassium 4.5 mmol/L (3.4-5.1); Sodium 136 mmol/L (137-145)
== END ==
PROVIDERS: Family Provider Family Medicine; PCP Family Medicine; Referring Provider Nurse Practitioner Family; Visit Provider Nurse Practitioner Family
DX: I50.32 Chronic diastolic (congestive) heart failure (principal)
CPT/HCPCS: 36415; 80048